=== PATIENT | female | born 1940 | race Caucasian/White ===

== ENCOUNTER 2018-08-24 15:01 | Inpatient (IN) | payer OTHER, MEDICAID ==
[~2018-08-24] VITALS: Ht 162.6 cm; Wt 58.2 kg
[~2018-08-24 15:01] MED LIST: ALEN70TA5 PO; DIPH25CA61 PO; IPRA4AER INH; LABE200T6 PO; LEVO25TA4 PO; LOSA1TAB22 PO; LOVA40TA2 PO; MORP30CA15 PO; OMEP-110 PO; OXYC-306 PO; POTA20TA91 PO
[2018-08-24] MEDS ORDERED: SODIUM CHLORIDE FLUSH 10ML SYR IVF ONE (15:30)
[2018-08-24] MEDS ORDERED: ASPIRIN 81 MG TABLET CHEW PO ONE (15:30)
[2018-08-24] MEDS ORDERED: DILTIAZEM 5 MG/ML, 5ML IV ONE ×2 (15:30→16:30)
[2018-08-24] MEDS ORDERED: DILTIAZEM 5 MG/ML, 5ML ONE (15:31)
[2018-08-24 15:37] LABS: BASOPHILS % (AUTO) 1 % (0-1); EOSINOPHILS # (AUTO) 0.25 x10^3/uL (0-0.4); EOSINOPHILS % (AUTO) 2 % (1-7); LYMPHOCYTES # (AUTO) 2.73 x10^3/uL (1-3.4); LYMPHOCYTES % (AUTO) 26 % (22-44); MD NO; MEAN CORPUSCULAR HEMOGLOBIN 30.9 pg (27.0-34.8); MEAN CORPUSCULAR HGB CONC 33.3 g/dL (32.4-35.8); MEAN CORPUSCULAR VOLUME 92.7 fL (80-100); MEAN PLATELET VOLUME 8.4 fL (7.4-10.4); MONOCYTES # (AUTO) 0.57 x10^3/uL (0.2-0.8); MONOCYTES % (AUTO) 5 % (2-9); NEUTROPHILS # (AUTO) 6.94 x10^3/uL (1.8-6.8); NEUTROPHILS % (AUTO) 66 % (42-75); PLATELET COUNT 265 x10^3/uL (130-400); RED BLOOD COUNT 5.23 x10^6/uL (3.82-5.3); RED CELL DISTRIBUTION WIDTH 13.6 % (9.6-15.2)
[2018-08-24] MEDS: DILTIAZEM 125 MG in DEXTROSE 5% 100 ML IV SCH ×2 (15:44→16:57)
[2018-08-24 15:45] LABS: ALBUMIN 4.2 g/dL (3.4-5.0); ANION GAP 9 mmol/L (5-15); CALCIUM 9.7 mg/dL (8.5-10.1); CHLORIDE 101 mmol/L (98-107)
[2018-08-24] MEDS ORDERED: MORPHINE SULFATE 4 MG/ML, 1ML ONE (16:24)
[2018-08-24] MEDS ORDERED: morphine SULFATE 10 MG/ML, 1ML IVPush ONE (16:30)
[2018-08-24 18:56] VITALS: BP 117/73
[2018-08-24 19:53] LABS: CHOLESTEROL, TOTAL 222 mg/dL (140-239); TRIGLYCERIDES 69 mg/dL (50-200); VLDL CHOLESTEROL 14 mg/dL (0-25)
[2018-08-24 19:57] LABS: HDL CHOL % 33 % (28-40); HDL CHOLESTEROL (DIRECT) 73 mg/dL (40-60); LDL CHOLESTEROL,CALCULATED 135 mg/dL (54-169); LDL/HDL RATIO 1.8 (0.5-3.0); TROPONIN I 0.414 ng/mL (0.000-0.045)
[2018-08-24 20:02] LABS: FREE T4 (FREE THYROXINE) 1.07 ng/dL (0.76-1.46)
[2018-08-24] MEDS ORDERED: AMLO10TA6 PO (20:06)
[2018-08-24] MEDS ORDERED: POLY17PO5 PO (20:06)
[2018-08-24] MEDS ORDERED: DOCU100C33 PO (20:06)
[2018-08-24] MEDS ORDERED: LEVO100T5 PO (20:06)
[2018-08-24] MEDS ORDERED: ALBUTEROL/IPRATROPIUM 2.5MG/0.5MG, 3 ML ONE (20:55)
[2018-08-24] MEDS ORDERED: OXYcodone/APAP 7.5/325MG TABLET PO SCH (21:00)
[2018-08-24] MEDS ORDERED: ALBUTEROL/IPRATROPIUM 2.5MG/0.5MG, 3 ML NPPB PRN (21:30)
[2018-08-24] MEDS: NICOTINE 14MG/24 HR PATCH.TD24 TD SCH (21:39)
[2018-08-24] MEDS: METOPROLOL TARTRATE 25 MG TABLET PO SCH (21:39)
[2018-08-24] MEDS: SODIUM CHLORIDE FLUSH 10ML SYR IVF SCH (21:39)
[2018-08-24] MEDS: DIPHENHYDRAMINE 25 MG CAPSULE PO PRN (21:49)
[2018-08-24] MEDS: OXYcodone/APAP 7.5/325MG TABLET PO SCH (23:10)
[2018-08-25 00:37] VITALS: BP 115/66
[2018-08-25 01:47] LABS: TROPONIN I 0.725 ng/mL (0.000-0.045)
[2018-08-25 01:49] LABS: HEMOGLOBIN A1C 5.7 % (4.2-6.3)
[2018-08-25 05:37] LABS: BASOPHILS # (AUTO) 0.05 x10^3/uL (0-0.1); BASOPHILS % (AUTO) 1 % (0-1); EOSINOPHILS # (AUTO) 0.24 x10^3/uL (0-0.4); EOSINOPHILS % (AUTO) 3 % (1-7); LYMPHOCYTES % (AUTO) 35 % (22-44); MD NO; MEAN CORPUSCULAR HEMOGLOBIN 31.3 pg (27.0-34.8); MEAN CORPUSCULAR HGB CONC 33.3 g/dL (32.4-35.8); MEAN CORPUSCULAR VOLUME 93.9 fL (80-100); MONOCYTES # (AUTO) 0.65 x10^3/uL (0.2-0.8); MONOCYTES % (AUTO) 8 % (2-9); NEUTROPHILS # (AUTO) 4.45 x10^3/uL (1.8-6.8); NEUTROPHILS % (AUTO) 54 % (42-75); PLATELET COUNT 241 x10^3/uL (130-400); RED BLOOD COUNT 4.69 x10^6/uL (3.82-5.3)
[2018-08-25 05:47] LABS: ANION GAP 7 mmol/L (5-15); CALCIUM 9.1 mg/dL (8.5-10.1); CHLORIDE 103 mmol/L (98-107); CREATININE 0.77 mg/dL (0.55-1.02)
[2018-08-25 06:40] VITALS: BP 144/72
[2018-08-25 08:04] LABS: TROPONIN I 0.599 ng/mL (0.000-0.045)
[2018-08-25] MEDS: METOPROLOL TARTRATE 25 MG TABLET PO SCH ×2 (09:00→20:45)
[2018-08-25] MEDS ORDERED: LOSARTAN 50MG TABLET PO SCH (09:00)
[2018-08-25] MEDS: SODIUM CHLORIDE FLUSH 10ML SYR IVF SCH ×2 (09:00→20:46)
[2018-08-25] MEDS: ALBUTEROL/IPRATROPIUM 2.5MG/0.5MG, 3 ML NPPB SCH ×2 (09:12→19:40)
[2018-08-25] MEDS: LEVOTHYROXINE 25 MCG TABLET PO SCH (10:05)
[2018-08-25] MEDS: HYDROCHLOROTHIAZIDE 25 MG TABLET PO SCH (10:05)
[2018-08-25] MEDS: POTASSIUM CHLORIDE 10 MEQ TABLET.ER PO SCH (10:06)
[2018-08-25] MEDS: OXYcodone/APAP 7.5/325MG TABLET PO SCH ×2 (10:06→20:41)
[2018-08-25 12:49] VITALS: BP 138/61
[2018-08-25 15:33] VITALS: BP 119/66
[2018-08-25] MEDS: NICOTINE 14MG/24 HR PATCH.TD24 TD SCH (19:30)
[2018-08-25 20:43] VITALS: BP 145/75
[2018-08-25 21:22] LABS: TROPONIN I 0.344 ng/mL (0.000-0.045)
[2018-08-26 02:17] VITALS: BP 156/82
[2018-08-26] MEDS: DIPHENHYDRAMINE 25 MG CAPSULE PO PRN (02:17)
[2018-08-26 05:26] LABS: BASOPHILS # (AUTO) 0.03 x10^3/uL (0-0.1); BASOPHILS % (AUTO) 0 % (0-1); EOSINOPHILS # (AUTO) 0.26 x10^3/uL (0-0.4); EOSINOPHILS % (AUTO) 3 % (1-7); LYMPHOCYTES % (AUTO) 24 % (22-44); MD NO; MEAN CORPUSCULAR HEMOGLOBIN 31.9 pg (27.0-34.8); MEAN CORPUSCULAR HGB CONC 34.1 g/dL (32.4-35.8); MEAN CORPUSCULAR VOLUME 93.4 fL (80-100); MEAN PLATELET VOLUME 8.5 fL (7.4-10.4); MONOCYTES # (AUTO) 0.64 x10^3/uL (0.2-0.8); MONOCYTES % (AUTO) 7 % (2-9); NEUTROPHILS % (AUTO) 66 % (42-75); PLATELET COUNT 217 x10^3/uL (130-400); RED CELL DISTRIBUTION WIDTH 13.9 % (9.6-15.2)
[2018-08-26 05:29] LABS: ANION GAP 5 mmol/L (5-15); CALCIUM 8.9 mg/dL (8.5-10.1); CHLORIDE 101 mmol/L (98-107)
[2018-08-26 05:34] LABS: TROPONIN I 0.264 ng/mL (0.000-0.045)
[2018-08-26] MEDS: LEVOTHYROXINE 25 MCG TABLET PO SCH (05:52)
[2018-08-26 06:35] VITALS: BP 145/71
[2018-08-26] MEDS: OXYcodone/APAP 7.5/325MG TABLET PO SCH ×2 (09:35→20:24)
[2018-08-26] MEDS: ALBUTEROL/IPRATROPIUM 2.5MG/0.5MG, 3 ML NPPB SCH ×2 (10:04→19:09)
[2018-08-26] MEDS ORDERED: REGADENOSON 0.4 MG/5 ML SYRINGE ONE (10:05)
[2018-08-26] MEDS: SODIUM CHLORIDE FLUSH 10ML SYR IVF SCH ×2 (13:11→20:24)
[2018-08-26] MEDS: HYDROCHLOROTHIAZIDE 25 MG TABLET PO SCH (13:12)
[2018-08-26] MEDS: LOSARTAN 50MG TABLET PO SCH (13:12)
[2018-08-26] MEDS: METOPROLOL TARTRATE 25 MG TABLET PO SCH ×2 (13:12→20:24)
[2018-08-26] MEDS: POTASSIUM CHLORIDE 10 MEQ TABLET.ER PO SCH (13:12)
[2018-08-26 13:16] VITALS: BP 122/56
[2018-08-26 18:37] VITALS: BP 127/73
[2018-08-26] MEDS: NICOTINE 14MG/24 HR PATCH.TD24 TD SCH (20:24)
[2018-08-27 01:58] VITALS: BP 145/73
[2018-08-27] MEDS: DIPHENHYDRAMINE 25 MG CAPSULE PO PRN (02:06)
[2018-08-27 05:20] LABS: ANION GAP 7 mmol/L (5-15); CALCIUM 9.2 mg/dL (8.5-10.1); CHLORIDE 98 mmol/L (98-107); CREATININE 0.73 mg/dL (0.55-1.02)
[2018-08-27 05:23] LABS: TROPONIN I 0.171 ng/mL (0.000-0.045)
[2018-08-27 06:03] VITALS: BP 137/67
[2018-08-27] MEDS: LEVOTHYROXINE 25 MCG TABLET PO SCH (06:06)
[2018-08-27 07:07] VITALS: BP 138/68
[2018-08-27] MEDS: HYDROCHLOROTHIAZIDE 25 MG TABLET PO SCH (07:55)
[2018-08-27] MEDS: POTASSIUM CHLORIDE 10 MEQ TABLET.ER PO SCH (07:55)
[2018-08-27] MEDS: METOPROLOL TARTRATE 25 MG TABLET PO SCH (07:55)
[2018-08-27] MEDS: LOSARTAN 50MG TABLET PO SCH (07:56)
[2018-08-27] MEDS: SODIUM CHLORIDE FLUSH 10ML SYR IVF SCH (07:56)
[2018-08-27] MEDS: ALBUTEROL/IPRATROPIUM 2.5MG/0.5MG, 3 ML NPPB SCH (08:13)
[2018-08-27] MEDS ORDERED: AMLODIPINE 5 MG TABLET PO SCH (09:00)
[2018-08-27] MEDS: OXYcodone/APAP 7.5/325MG TABLET PO SCH (09:28)
[2018-08-27] MEDS ORDERED: APIXABAN 5 MG TABLET PO SCH (10:00)
[2018-08-27] MEDS ORDERED: METO25TA35 PO (13:19)
[2018-08-27] MEDS ORDERED: AMLO5TAB7 PO (13:19)
[2018-08-27] MEDS ORDERED: APIX5TAB PO (13:19)
[2018-08-27] MEDS ORDERED: NICO-486 TD (13:19)
[2018-08-27 13:23] VITALS: BP 133/78
== END 2018-08-27 16:40 | disposition home health service (06) | DRG 280 ==
LOC: ED 15:50 → EDIP 17:31 → 5SO 18:45 → DCLOUNGE 08-27 14:17
PROVIDERS: ADMIT Family Medicine; ATTEND Family Medicine
DX: I21.4 Non-ST elevation (NSTEMI) myocardial infarction (principal); J96.21 Acute and chronic respiratory failure with hypoxia; I71.00 Dissection of unspecified site of aorta; I50.30 Unspecified diastolic (congestive) heart failure; D68.59 Other primary thrombophilia; I48.0 Paroxysmal atrial fibrillation; E03.9 Hypothyroidism, unspecified; E11.9 Type 2 diabetes mellitus without complications; E78.5 Hyperlipidemia, unspecified; F17.210 Nicotine dependence, cigarettes, uncomplicated; F32.9 Major depressive disorder, single episode, unspecified; G89.29 Other chronic pain; I11.0 Hypertensive heart disease with heart failure; I34.0 Nonrheumatic mitral (valve) insufficiency; I35.8 Other nonrheumatic aortic valve disorders; J44.9 Chronic obstructive pulmonary disease, unspecified; M81.0 Age-related osteoporosis without current pathological fracture; Z66 Do not resuscitate; Z79.899 Other long term (current) drug therapy; Z99.81 Dependence on supplemental oxygen; I71.4 Abdominal aortic aneurysm, without rupture; Z88.8 Allergy status to other drugs, medicaments and biological substances
CPT/HCPCS: 36415; 71045; 74174; 78452; 80048; 80061; 82040; 83036; 84439; 84443; 84484; 85025; 93005; 93017; 93306; 93978; 94640; 96374; G0378; J2785; J7620; A9502; C9898; J2270; Q0163

== ENCOUNTER 2019-02-24 14:15 | Emergency (ER) | payer MEDICARE, MEDICAID ==
[~2019-02-24] VITALS: Ht 162.6 cm; Wt 58.0 kg
[~2019-02-24 14:15] MED LIST changes: -ALEN70TA5 PO; +ALEN70TA6 PO; +AMLO-150 PO; +AMLO10TA8 PO; +APIX5TAB PO; +DOCU100C33 PO; +LEVO100T5 PO; +METO25TA35 PO; +NICO-486 TD; +POLY17PO5 PO
[2019-02-24] MEDS ORDERED: METHOCARBAMOL 750 MG TABLET PO ONE (15:00)
[2019-02-24] MEDS ORDERED: METHOCARBAMOL 750 MG TABLET ONE (15:18)
[2019-02-24] MEDS ORDERED: LEVO150T5 PO (15:25)
--- NOTE | 2019-02-24 15:25 | NUR ---
CT COMPLETED AND MEDICATED PER ORDERS
--- NOTE | 2019-02-24 16:19 | NUR ---
ASSUMED CARE OF PT WHILE PRIMARY RN AT LUNCH. MD AT BEDSIDE. PT WILL BE DISCHARGED. ASSISTED PT TO BR AND PT STABLE ON FEET.
--- NOTE | 2019-02-24 16:34 | NUR ---
RESTING WITH EYES CLOSED
[2019-02-24 16:36] VITALS: BP 193/82
== END 2019-02-24 18:03 | disposition home or self-care (01) ==
LOC: ED 17:44
DX: M47.892 Other spondylosis, cervical region (principal); K08.89 Other specified disorders of teeth and supporting structures; I10 Essential (primary) hypertension; E03.9 Hypothyroidism, unspecified; J44.9 Chronic obstructive pulmonary disease, unspecified; M19.90 Unspecified osteoarthritis, unspecified site
CPT/HCPCS: 72125; 99284

== ENCOUNTER 2019-02-27 09:13 | Emergency (ER) | payer MEDICARE, MEDICAID ==
[~2019-02-27] VITALS: Ht 162.6 cm; Wt 55.1 kg
[~2019-02-27 09:13] MED LIST changes: +LEVO150T5 PO
[2019-02-27 09:15] VITALS: BP 205/61
--- NOTE | 2019-02-27 09:37 | NUR ---
CHRONIC PAIN BACK AND NECK ON PAIN MGT IS OUT OF MEDS TOOK MORE THAN WRITTEN FOR
[2019-02-27] MEDS ORDERED: OXYcodone/APAP 5/325MG TABLET ONE (10:17)
[2019-02-27] MEDS ORDERED: HYDROcodone/APAP 5/325 TABLET PO ONE (10:30)
[2019-02-27] MEDS ORDERED: OXYcodone/APAP 5/325MG TABLET PO ONE (10:30)
[2019-03-01] MEDS ORDERED: TIZA4TAB PO
[2019-03-01] MEDS ORDERED: METH750T2 PO
[2019-03-03] MEDS ORDERED: LOSA100T14 PO (16:01)
== END 2019-02-27 10:38 | disposition home or self-care (01) ==
LOC: ED 09:45
DX: F11.23 Opioid dependence with withdrawal (principal); E03.9 Hypothyroidism, unspecified; J44.9 Chronic obstructive pulmonary disease, unspecified; M19.90 Unspecified osteoarthritis, unspecified site; I11.9 Hypertensive heart disease without heart failure
CPT/HCPCS: 99283

== ENCOUNTER 2020-02-23 12:05 | Inpatient (IN) | payer MEDICARE, MEDICAID ==
[2020-02-23] VITALS (10 sets, daily range): BP systolic 117–159; BP diastolic 61–78
[~2020-02-23] VITALS: Ht 162.6 cm; Wt 54.9 kg
[~2020-02-23 12:05] MED LIST changes: +AMOX1TAB64 PO; +ASPI-496 PO; +ASPI300S PR; +ATOR40TA78 PO; +FURO-93 PO; +LOSA100T14 PO; +METH750T2 PO; +METO25TA91 PO; +POTA10TA5 PO; +POTA8CAP20 PO; +RIVA15TA PO; +TIZA4TAB2 PO
[2020-02-23] MEDS ORDERED: DILTIAZEM 125 MG in SODIUM CHLORIDE 0.9% 100 ML IV SCH (12:19)
--- NOTE | 2020-02-23 12:27 | NUR ---
PT BIB [facility] FOR CP. "I AM HAVING CP AND PAIN ALL OVER. THEY TOOK ME OFF MY PAIN MEDICINE A FEW DAYS AGO." EKG COMPLETE. LABS DRAWN. PT IS CONNECTED TO LEATHER TACKER AND PULSE OX
[2020-02-23] MEDS ORDERED: PLEASE ENTER HEIGHT AND WEIGHT MC SCH (12:30)
[2020-02-23] MEDS ORDERED: SODIUM CHLORIDE FLUSH 10ML SYR IVF ONE (12:30)
[2020-02-23] MEDS ORDERED: DILTIAZEM 5 MG/ML, 5ML IVPush ONE (12:30)
[2020-02-23 12:36] LABS: BASOPHILS # (AUTO) 0.09 x10^3/uL (0-0.1); BASOPHILS % (AUTO) 2 % (0-1); EOSINOPHILS # (AUTO) 0.03 x10^3/uL (0-0.4); EOSINOPHILS % (AUTO) 1 % (1-7); LYMPHOCYTES # (AUTO) 0.82 x10^3/uL (1-3.4); LYMPHOCYTES % (AUTO) 16 % (22-44); MD NO; MEAN CORPUSCULAR HEMOGLOBIN 26.5 pg (27.0-34.8); MEAN CORPUSCULAR VOLUME 82.8 fL (80-100); MEAN PLATELET VOLUME 8.4 fL (7.4-10.4); MONOCYTES # (AUTO) 0.54 x10^3/uL (0.2-0.8); MONOCYTES % (AUTO) 10 % (2-9); NEUTROPHILS # (AUTO) 3.85 x10^3/uL (1.8-6.8); NEUTROPHILS % (AUTO) 72 % (42-75); PLATELET COUNT 378 x10^3/uL (130-400); RED BLOOD COUNT 2.96 x10^6/uL (3.82-5.3); RED CELL DISTRIBUTION WIDTH 17.6 % (9.6-15.2)
[2020-02-23] MEDS ORDERED: DILTIAZEM 5 MG/ML, 5ML ONE (12:37)
[2020-02-23 12:46] LABS: ALANINE AMINOTRANSFERASE 23 U/L (12-78); ANION GAP 8 mmol/L (5-15); CALCIUM 8.7 mg/dL (8.5-10.1); CHLORIDE 105 mmol/L (98-107); CREATININE 0.67 mg/dL (0.55-1.02)
[2020-02-23] MEDS ORDERED: PANTOPRAZOLE 80 MG in SODIUM CHLORIDE 0.9% 50 ML IVPB ONE (12:53)
[2020-02-23] MEDS ORDERED: PANTOPRAZOLE 80 MG in SODIUM CHLORIDE 0.9% 100 ML IV SCH (12:53)
[2020-02-23 13:00] LABS: ALKALINE PHOSPHATASE 70 U/L (45-117); BILIRUBIN,TOTAL 0.4 mg/dL (0.2-1.0)
[2020-02-23] MEDS ORDERED: POTASSIUM CHLORIDE 20 MEQ TAB.ER.PRT PO ONE (13:00)
[2020-02-23] MEDS ORDERED: POTASSIUM CHLORIDE 40 MEQ in SODIUM CHLORIDE 0.9% 500 ML IV ONE ×2 (13:00→17:00)
[2020-02-23 13:01] LABS: TOTAL PROTEIN 7.1 g/dL (6.4-8.2); TROPONIN I 0.073 ng/mL (0.000-0.045)
--- NOTE | 2020-02-23 13:10 | NUR ---
CALL SHONA [phone] WHEN READY TO BE DC'D FOR RIDE
[2020-02-23 13:20] LABS: FREE T4 (FREE THYROXINE) 2.43 ng/dL (0.76-1.46)
[2020-02-23] MEDS ORDERED: POTASSIUM CHLORIDE 20 MEQ TAB.ER.PRT ONE (13:24)
[2020-02-23] MEDS ORDERED: MAGNESIUM SULFATE PMX 2GM/50ML 50 ML IV ONE (13:30)
--- NOTE | 2020-02-23 13:39 | NUR ---
ADMITTING HOSPITALIST IN WITH PT AT THIS TIME
[2020-02-23 13:41] LABS: INTERNATIONAL NORMALIZED RATIO 1.04 (0.93-1.1)
[2020-02-23] MEDS ORDERED: LABETALOL 5MG/ML, 20ML IVPush PRN (14:00)
[2020-02-23] MEDS ORDERED: ACETAMINOPHEN 325 MG TABLET PO PRN (14:00)
[2020-02-23] MEDS ORDERED: hydrALAzine 20 MG/ML, 1ML IVPush PRN (14:00)
[2020-02-23] MEDS ORDERED: ENALAPRILAT 1.25 MG/ML, 2ML IVPush PRN (14:00)
[2020-02-23] MEDS ORDERED: ONDANSETRON 2MG/ML, 2ML IVPush PRN (14:00)
[2020-02-23] MEDS ORDERED: OXYcodone IR 5MG TABLET PO PRN (14:00)
[2020-02-23] MEDS ORDERED: METHOCARBAMOL 750 MG TABLET PO PRN (14:30)
[2020-02-23] MEDS ORDERED: METO25TA91 PO (14:53)
--- NOTE | 2020-02-23 14:58 | NUR ---
SPOKE WITH [facility] D/C CARDIZEM REPEAT EKG AND TRANSFER TO FLOOR
[2020-02-23] MEDS ORDERED: ALBUTEROL/IPRATROPIUM 2.5MG/0.5MG, 3 ML NPPB PRN (15:30)
[2020-02-23 18:19] LABS: MICROSCOPIC AUTO
[2020-02-23 18:20] LABS: CULTURE INDICATED? YES
[2020-02-23] MEDS: MORPHINE SULFATE 4 MG/ML, 1ML IVPush PRN (18:26)
[2020-02-23 20:12] LABS: ANION GAP 5 mmol/L (5-15); CALCIUM 8.4 mg/dL (8.5-10.1); CHLORIDE 110 mmol/L (98-107); CREATININE 0.56 mg/dL (0.55-1.02)
[2020-02-23 20:15] LABS: TROPONIN I 0.847 ng/mL (0.000-0.045)
[2020-02-23] MEDS ORDERED: CEFTRIAXONE PMX 2GM/50ML 50 ML IV ONE (20:30)
[2020-02-23] MEDS ORDERED: ATORVASTATIN 40 MG TABLET PO SCH (21:00)
[2020-02-23] MEDS: OXYcodone/APAP 7.5/325MG TABLET PO SCH (21:06)
[2020-02-24 01:16] VITALS: BP 147/62
[2020-02-24 01:39] LABS: MD NO; MEAN PLATELET VOLUME 8.3 fL (7.4-10.4)
[2020-02-24 01:47] LABS: BASOPHILS # (AUTO) 0.04 x10^3/uL (0-0.1); BASOPHILS % (AUTO) 1 % (0-1); EOSINOPHILS # (AUTO) 0.17 x10^3/uL (0-0.4); EOSINOPHILS % (AUTO) 3 % (1-7); LYMPHOCYTES # (AUTO) 2.12 x10^3/uL (1-3.4); LYMPHOCYTES % (AUTO) 32 % (22-44); MEAN CORPUSCULAR HEMOGLOBIN 27.5 pg (27.0-34.8); MEAN CORPUSCULAR HGB CONC 32.4 g/dL (32.4-35.8); MONOCYTES # (AUTO) 0.69 x10^3/uL (0.2-0.8); MONOCYTES % (AUTO) 11 % (2-9); NEUTROPHILS # (AUTO) 3.59 x10^3/uL (1.8-6.8); NEUTROPHILS % (AUTO) 54 % (42-75); PLATELET COUNT 279 x10^3/uL (130-400); RED BLOOD COUNT 3.48 x10^6/uL (3.82-5.3); RED CELL DISTRIBUTION WIDTH 16.7 % (9.6-15.2)
[2020-02-24 01:54] LABS: ANION GAP 6 mmol/L (5-15); CALCIUM 8.5 mg/dL (8.5-10.1); CHLORIDE 110 mmol/L (98-107); CREATININE 0.52 mg/dL (0.55-1.02)
[2020-02-24 02:02] LABS: TROPONIN I 0.967 ng/mL (0.000-0.045)
[2020-02-24 06:23] VITALS: BP 167/68
[2020-02-24] MEDS: METOPROLOL SUCCINATE 25 MG TAB.ER.24H PO SCH (06:34)
[2020-02-24 07:18] LABS: TROPONIN I 0.848 ng/mL (0.000-0.045)
[2020-02-24] MEDS ORDERED: POTASSIUM ACID PHOSPHATE 500 MG TABLET.SOL PO SCH (07:30)
[2020-02-24] MEDS: AMLODIPINE 5 MG TABLET PO SCH (09:05)
[2020-02-24] MEDS: LOSARTAN 100 MG TAB PO SCH (09:06)
[2020-02-24] MEDS: OXYcodone/APAP 7.5/325MG TABLET PO SCH ×2 (09:06→20:04)
--- NOTE | 2020-02-24 11:05 | NUR ---
Pt will benefit from SNF rehab but will probably not want to go. Maybe a fdc. Addendum: 02/24/20 at 1105 by Fam Kwok PT Amended: Links added.
[2020-02-24] MEDS: PANTOPRAZOLE 40 MG IV IVPush SCH ×2 (12:08→22:48)
[2020-02-24 13:21] VITALS: BP 110/61
[2020-02-24] MEDS: CEFTRIAXONE PMX 1GM/50ML 50 ML IV SCH (20:40)
[2020-02-24] MEDS ORDERED: ATORVASTATIN 80 MG TABLET PO SCH (21:00)
[2020-02-24 21:19] VITALS: BP 144/78
[2020-02-24] MEDS: MORPHINE SULFATE 4 MG/ML, 1ML IVPush PRN (21:33)
[2020-02-25 02:07] VITALS: BP 155/77
[2020-02-25 05:15] LABS: BASOPHILS # (AUTO) 0.06 x10^3/uL (0-0.1); BASOPHILS % (AUTO) 1 % (0-1); EOSINOPHILS # (AUTO) 0.31 x10^3/uL (0-0.4); EOSINOPHILS % (AUTO) 4 % (1-7); LYMPHOCYTES # (AUTO) 1.47 x10^3/uL (1-3.4); LYMPHOCYTES % (AUTO) 17 % (22-44); MD NO; MEAN CORPUSCULAR HEMOGLOBIN 27.3 pg (27.0-34.8); MEAN CORPUSCULAR VOLUME 85.1 fL (80-100); MEAN PLATELET VOLUME 8.5 fL (7.4-10.4); MONOCYTES # (AUTO) 0.74 x10^3/uL (0.2-0.8); MONOCYTES % (AUTO) 9 % (2-9); NEUTROPHILS # (AUTO) 5.91 x10^3/uL (1.8-6.8); NEUTROPHILS % (AUTO) 70 % (42-75); PLATELET COUNT 296 x10^3/uL (130-400); RED BLOOD COUNT 3.75 x10^6/uL (3.82-5.3); RED CELL DISTRIBUTION WIDTH 17.6 % (9.6-15.2)
[2020-02-25 05:18] LABS: ANION GAP 6 mmol/L (5-15); CALCIUM 8.7 mg/dL (8.5-10.1); CHLORIDE 108 mmol/L (98-107); CREATININE 0.62 mg/dL (0.55-1.02)
[2020-02-25 06:28] VITALS: BP 163/63
[2020-02-25] MEDS: MORPHINE SULFATE 4 MG/ML, 1ML IVPush PRN (06:46)
[2020-02-25] MEDS: OXYcodone/APAP 7.5/325MG TABLET PO SCH (08:46)
[2020-02-25] MEDS: LOSARTAN 100 MG TAB PO SCH (08:46)
[2020-02-25] MEDS: METOPROLOL SUCCINATE 25 MG TAB.ER.24H PO SCH (08:48)
[2020-02-25] MEDS: AMLODIPINE 5 MG TABLET PO SCH ×2 (08:48→12:51)
[2020-02-25] MEDS ORDERED: SODIUM CHLORIDE 0.9% 1,000 ML IV SCH (09:00)
[2020-02-25] MEDS ORDERED: PROMETHAZINE 25 MG/ML, 1ML IV PRN (09:30)
[2020-02-25] MEDS ORDERED: MORPHINE SULFATE 4 MG/ML, 1ML IVPush PRN (09:30)
[2020-02-25] MEDS ORDERED: CHLORHEXIDINE 15 ML UDC MM STA (09:55)
[2020-02-25] MEDS ORDERED: CHLORHEXIDINE 15 ML UDC ONE (09:57)
[2020-02-25] MEDS ORDERED: FENTANYL PF 100 MCG/2ML ONE (10:03)
[2020-02-25] MEDS ORDERED: PROPOFOL 10 MG/ML, 20ML ONE (11:00)
[2020-02-25] MEDS ORDERED: SUCCINYLCHOLINE 20 MG/ML, 10ML ONE (11:00)
[2020-02-25] MEDS ORDERED: hydrALAzine 20 MG/ML, 1ML ONE (11:41)
[2020-02-25 12:12] VITALS: BP 143/61
[2020-02-25] MEDS: PANTOPRAZOLE 40 MG IV IVPush SCH (12:20)
[2020-02-25] MEDS: CEFTRIAXONE PMX 1GM/50ML 50 ML IV SCH (13:35)
[2020-02-25] MEDS ORDERED: ATOR-2 PO ×2 (14:10)
[2020-02-25] MEDS ORDERED: LEVO100T5 PO (14:10)
[2020-02-25] MEDS ORDERED: PANT40TA5 PO (14:10)
== END 2020-02-25 16:40 | disposition home health service (06) | DRG 377 ==
LOC: ED 13:10 → EDIP 13:31 → 5SO 15:17
PROVIDERS: ADMIT Family Medicine; ATTEND Family Medicine
PROC: 30233N1 Transfusion of Nonautologous Red Blood Cells into Peripheral Vein, Percutaneous Approach (ICD-10-PCS; 2020-02-23)
PROC: 0DB68ZX Excision of Stomach, Via Natural or Artificial Opening Endoscopic, Diagnostic (ICD-10-PCS; 2020-02-25)
PROC: 0D598ZZ Destruction of Duodenum, Via Natural or Artificial Opening Endoscopic (ICD-10-PCS; principal; 2020-02-25 10:00)
DX: K31.811 Angiodysplasia of stomach and duodenum with bleeding (principal); I21.A1 Myocardial infarction type 2; J96.91 Respiratory failure, unspecified with hypoxia; I71.02 Dissection of abdominal aorta; I48.20 Chronic atrial fibrillation, unspecified; F11.23 Opioid dependence with withdrawal; D62 Acute posthemorrhagic anemia; D68.69 Other thrombophilia; I48.92 Unspecified atrial flutter; N39.0 Urinary tract infection, site not specified; K26.4 Chronic or unspecified duodenal ulcer with hemorrhage; E03.9 Hypothyroidism, unspecified; E83.42 Hypomagnesemia; E87.6 Hypokalemia; G89.29 Other chronic pain; I11.0 Hypertensive heart disease with heart failure; I25.2 Old myocardial infarction; I34.0 Nonrheumatic mitral (valve) insufficiency; I48.0 Paroxysmal atrial fibrillation; I50.9 Heart failure, unspecified; I65.22 Occlusion and stenosis of left carotid artery; I73.9 Peripheral vascular disease, unspecified; J44.9 Chronic obstructive pulmonary disease, unspecified; M79.7 Fibromyalgia; Z79.01 Long term (current) use of anticoagulants; Z82.49 Family history of ischemic heart disease and other diseases of the circulatory system; Z86.73 Personal history of transient ischemic attack (TIA), and cerebral infarction without residual deficits; Z86.79 Personal history of other diseases of the circulatory system; Z87.11 Personal history of peptic ulcer disease; Z87.891 Personal history of nicotine dependence; K44.9 Diaphragmatic hernia without obstruction or gangrene
CPT/HCPCS: 36415; 71045; 80048; 80053; 81001; 83735; 84100; 84439; 84443; 84481; 84484; 85018; 85025; 85610; 86850; 86900; 86923; 87077; 87086; 87186; 88305; 88342; 93005; 96365; 96366; 96375; 99291; G0378; J0696; J2704; J3010; J3480; C9113; J0330; J0360; J2270; J3475; J7030; J7040; P9016

== ENCOUNTER 2020-06-27 15:40 | Inpatient (IN) | payer MEDICARE, MEDICAID ==
[~2020-06-27] VITALS: Ht 160 cm; Wt 52.3 kg
[~2020-06-27 15:40] MED LIST changes: +ATOR-2 PO; +PANT40TA5 PO
--- NOTE | 2020-06-27 15:53 | NUR ---
PT CAME IN CO OF WEAKNESS. STATES SHE IS UNABLE TO TAKE CARE OF HERSELF AND HER HOME HEALTH NURSE DOESNT COME OVER ENOUGH. SHE WANTS TO GET INTO SOME KIND OF LONG TERM. PT ALSO CO OF NOT BEING TO BREATH. PT 100% ON BASELINE 2 LITERS FOR COPD. CONNECTED TO MONITORING EQUIPMENT.
[2020-06-27 16:08] LABS: BASOPHILS # (AUTO) 0.01 x10^3/uL (0-0.1); BASOPHILS % (AUTO) 0 % (0-1); EOSINOPHILS # (AUTO) 0.06 x10^3/uL (0-0.4); EOSINOPHILS % (AUTO) 1 % (1-7); LYMPHOCYTES # (AUTO) 1.02 x10^3/uL (1-3.4); LYMPHOCYTES % (AUTO) 16 % (22-44); MD NO; MEAN CORPUSCULAR HEMOGLOBIN 24.3 pg (27.0-34.8); MEAN CORPUSCULAR HGB CONC 31.3 g/dL (32.4-35.8); MEAN CORPUSCULAR VOLUME 77.7 fL (80-100); MEAN PLATELET VOLUME 7.1 fL (7.4-10.4); MONOCYTES # (AUTO) 0.69 x10^3/uL (0.2-0.8); MONOCYTES % (AUTO) 11 % (2-9); NEUTROPHILS # (AUTO) 4.68 x10^3/uL (1.8-6.8); NEUTROPHILS % (AUTO) 72 % (42-75); PLATELET COUNT 387 x10^3/uL (130-400); RED BLOOD COUNT 4.24 x10^6/uL (3.82-5.3); RED CELL DISTRIBUTION WIDTH 17.8 % (9.6-15.2)
[2020-06-27 16:17] LABS: ALANINE AMINOTRANSFERASE 32 U/L (12-78); ALBUMIN 3.8 g/dL (3.4-5.0); ANION GAP 8 mmol/L (5-15); CALCIUM 9.1 mg/dL (8.5-10.1); CHLORIDE 90 mmol/L (98-107)
[2020-06-27 16:20] LABS: ALKALINE PHOSPHATASE 68 U/L (45-117); BILIRUBIN,TOTAL 0.5 mg/dL (0.2-1.0); CREATININE 0.79 mg/dL (0.55-1.02); TOTAL PROTEIN 7.3 g/dL (6.4-8.2)
--- NOTE | 2020-06-27 16:20 | NUR ---
CALLED [employer] FOR HOME HEALTH EVAL
[2020-06-27 16:27] LABS: MICROSCOPIC INDICATED
--- NOTE | 2020-06-27 16:58 | NUR ---
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 DISCUSSED VISITING HOURS 3P-8P AND NO COVID R/O ARE ALLOWED VISITORS. UNDERSTANDING VERBALIZED. VERONA WILL CALL TOMORROW TO DISCUSS WITH PTS NURSE.
--- NOTE | 2020-06-27 17:07 | NUR ---
PT UP FOR RECHECK AT THIS TIME. VSS. NAD
[2020-06-27] MEDS ORDERED: CEFTRIAXONE PMX 1GM/50ML 50 ML IVPB ONE (17:30)
[2020-06-27] MEDS ORDERED: CEFTRIAXONE PMX 1GM/50ML 50 ML ONE (17:35)
[2020-06-27] MEDS ORDERED: ASPI-515 PO (18:25)
[2020-06-27] MEDS ORDERED: SODIUM CHLORIDE FLUSH 10ML SYR IVF PRN (18:30)
[2020-06-27] MEDS ORDERED: LABETALOL 5MG/ML, 20ML IVPush PRN (19:30)
[2020-06-27] MEDS ORDERED: CEFTRIAXONE PMX 2GM/50ML 50 ML IV SCH (19:30)
[2020-06-27] MEDS ORDERED: ALBUTEROL-IPRATROPIUM MDI INH INH PRN (19:30)
[2020-06-27] MEDS ORDERED: DOCUSATE 100 MG CAPSULE PO PRN (19:30)
[2020-06-27] MEDS ORDERED: POLYETHYLENE GLYCOL 17 GM PACKET PO PRN (19:30)
[2020-06-27] MEDS ORDERED: ONDANSETRON ODT 4 MG PO PRN (19:30)
[2020-06-27] MEDS ORDERED: BISACODYL 10 MG SUPP PR PRN (19:30)
[2020-06-27] MEDS ORDERED: ONDANSETRON 2MG/ML, 2ML IVPush PRN (19:30)
[2020-06-27] MEDS: NICOTINE 7 MG/24 HR PATCH.TD24 TD SCH (20:49)
[2020-06-27] MEDS: ATORVASTATIN 80 MG TABLET PO SCH (20:49)
[2020-06-27] MEDS: SODIUM CHLORIDE 0.9% 1,000 ML IV SCH (20:50)
[2020-06-27 20:51] VITALS: BP 107/58
[2020-06-27] MEDS: OXYcodone/APAP 7.5/325MG TABLET PO SCH (23:47)
[2020-06-28 00:10] VITALS: BP 152/74
[2020-06-28] MEDS: TIZANIDINE 4MG TABLET PO PRN ×3 (05:05→23:07)
[2020-06-28] MEDS: METOPROLOL SUCCINATE 25 MG TAB.ER.24H PO SCH (05:06)
[2020-06-28] MEDS: ACETAMINOPHEN 325 MG TABLET PO PRN ×3 (05:06→23:07)
[2020-06-28 05:57] LABS: ANION GAP 6 mmol/L (5-15); CALCIUM 8.6 mg/dL (8.5-10.1); CHLORIDE 96 mmol/L (98-107)
[2020-06-28 06:08] LABS: BASOPHILS # (AUTO) 0.04 x10^3/uL (0-0.1); BASOPHILS % (AUTO) 1 % (0-1); EOSINOPHILS # (AUTO) 0.19 x10^3/uL (0-0.4); EOSINOPHILS % (AUTO) 4 % (1-7); LYMPHOCYTES # (AUTO) 1.23 x10^3/uL (1-3.4); LYMPHOCYTES % (AUTO) 23 % (22-44); MD NO; MEAN CORPUSCULAR HEMOGLOBIN 24.3 pg (27.0-34.8); MEAN CORPUSCULAR HGB CONC 31.8 g/dL (32.4-35.8); MEAN CORPUSCULAR VOLUME 76.6 fL (80-100); MEAN PLATELET VOLUME 7.7 fL (7.4-10.4); MONOCYTES % (AUTO) 11 % (2-9); NEUTROPHILS # (AUTO) 3.24 x10^3/uL (1.8-6.8); NEUTROPHILS % (AUTO) 61 % (42-75); PLATELET COUNT 345 x10^3/uL (130-400); RED BLOOD COUNT 3.92 x10^6/uL (3.82-5.3); RED CELL DISTRIBUTION WIDTH 18.2 % (9.6-15.2)
[2020-06-28 06:09] LABS: CREATININE 0.69 mg/dL (0.55-1.02)
[2020-06-28] MEDS ORDERED: LEVOTHYROXINE 100 MCG TABLET ONE (06:13)
[2020-06-28] MEDS: SODIUM CHLORIDE 0.9% 1,000 ML IV SCH ×2 (06:17→16:07)
[2020-06-28 07:15] VITALS: BP 122/65
[2020-06-28] MEDS ORDERED: LEVOTHYROXINE 100 MCG TABLET PO SCH (09:00)
[2020-06-28] MEDS ORDERED: LEVOTHYROXINE 125 MCG TABLET PO SCH (09:00)
[2020-06-28] MEDS: SERTRALINE 50MG TABLET PO SCH (09:25)
[2020-06-28] MEDS: SENNA/DOCUSATE TABLET PO SCH (09:25)
[2020-06-28] MEDS: RIVAROXABAN 15 MG TABLET PO SCH (09:25)
[2020-06-28] MEDS: OXYcodone/APAP 7.5/325MG TABLET PO SCH ×2 (13:10→21:19)
[2020-06-28 15:34] LABS: ANION GAP 6 mmol/L (5-15); CALCIUM 8.2 mg/dL (8.5-10.1); CHLORIDE 100 mmol/L (98-107); CREATININE 0.64 mg/dL (0.55-1.02)
[2020-06-28 15:43] VITALS: BP 131/64
[2020-06-28] MEDS ORDERED: SODIUM CHLORIDE 0.9% 1,000 ML IV SCH (19:07)
[2020-06-28 19:15] VITALS: BP 105/57
[2020-06-28] MEDS: NICOTINE 7 MG/24 HR PATCH.TD24 TD SCH (21:19)
[2020-06-28] MEDS: ATORVASTATIN 80 MG TABLET PO SCH (21:19)
[2020-06-29] VITALS (7 sets, daily range): BP systolic 115–183; BP diastolic 58–75
[2020-06-29] MEDS: ACETAMINOPHEN 325 MG TABLET PO PRN ×2 (03:24→12:18)
[2020-06-29 04:56] LABS: ANION GAP 5 mmol/L (5-15); CALCIUM 8.3 mg/dL (8.5-10.1); CHLORIDE 102 mmol/L (98-107); CREATININE 0.58 mg/dL (0.55-1.02)
[2020-06-29] MEDS: METOPROLOL SUCCINATE 25 MG TAB.ER.24H PO SCH (05:11)
[2020-06-29] MEDS: LEVOTHYROXINE 125 MCG TABLET PO SCH (05:11)
[2020-06-29] MEDS: RIVAROXABAN 15 MG TABLET PO SCH (08:13)
[2020-06-29] MEDS: SERTRALINE 50MG TABLET PO SCH (08:13)
[2020-06-29] MEDS: SENNA/DOCUSATE TABLET PO SCH (08:13)
[2020-06-29] MEDS: POLYETHYLENE GLYCOL 17 GM PACKET PO SCH (08:14)
[2020-06-29] MEDS: TIZANIDINE 4MG TABLET PO PRN ×2 (08:15→14:10)
[2020-06-29] MEDS: OXYcodone/APAP 7.5/325MG TABLET PO SCH ×2 (10:11→20:28)
[2020-06-29] MEDS ORDERED: hydrALAzine 20 MG/ML, 1ML IV PRN (16:00)
[2020-06-29] MEDS ORDERED: SODIUM CHLORIDE 0.9% 1,000 ML IV SCH (19:07)
[2020-06-29] MEDS ORDERED: CEFTRIAXONE PMX 2GM/50ML 50 ML IV SCH (19:30)
[2020-06-29] MEDS: NICOTINE 7 MG/24 HR PATCH.TD24 TD SCH (20:28)
[2020-06-29] MEDS: ATORVASTATIN 80 MG TABLET PO SCH (20:28)
[2020-06-30 00:25] VITALS: BP 184/81
[2020-06-30] MEDS: TIZANIDINE 4MG TABLET PO PRN ×2 (00:35→06:07)
[2020-06-30 01:31] VITALS: BP 109/60
[2020-06-30] MEDS: ACETAMINOPHEN 325 MG TABLET PO PRN (04:21)
[2020-06-30] MEDS ORDERED: METOPROLOL SUCCINATE 25 MG TAB.ER.24H PO SCH (06:00)
[2020-06-30] MEDS: LEVOTHYROXINE 125 MCG TABLET PO SCH (06:08)
[2020-06-30 06:09] VITALS: BP 184/73
[2020-06-30] MEDS ORDERED: LISINOPRIL 5 MG TABLET PO SCH (09:00)
[2020-06-30] MEDS: POLYETHYLENE GLYCOL 17 GM PACKET PO SCH (09:09)
[2020-06-30] MEDS: SERTRALINE 50MG TABLET PO SCH (09:09)
[2020-06-30] MEDS: RIVAROXABAN 15 MG TABLET PO SCH (09:09)
[2020-06-30] MEDS: SENNA/DOCUSATE TABLET PO SCH (09:09)
[2020-06-30] MEDS: OXYcodone/APAP 7.5/325MG TABLET PO SCH ×2 (09:09→20:22)
[2020-06-30] MEDS: LISINOPRIL 5 MG TABLET PO SCH (11:30)
[2020-06-30 14:27] VITALS: BP 149/68
[2020-06-30 18:26] VITALS: BP 164/77
[2020-06-30] MEDS: ATORVASTATIN 80 MG TABLET PO SCH (20:23)
[2020-07-01 00:49] VITALS: BP 166/77
[2020-07-01] MEDS: TIZANIDINE 4MG TABLET PO PRN (04:53)
[2020-07-01] MEDS: LEVOTHYROXINE 125 MCG TABLET PO SCH (04:53)
[2020-07-01] MEDS: ACETAMINOPHEN 325 MG TABLET PO PRN ×2 (04:54→14:11)
[2020-07-01 08:20] VITALS: BP 146/66
[2020-07-01] MEDS: POLYETHYLENE GLYCOL 17 GM PACKET PO SCH (09:00)
[2020-07-01] MEDS: SENNA/DOCUSATE TABLET PO SCH (09:00)
[2020-07-01] MEDS: NICOTINE 7 MG/24 HR PATCH.TD24 TD SCH (09:00)
[2020-07-01] MEDS: SERTRALINE 50MG TABLET PO SCH (09:01)
[2020-07-01] MEDS: LISINOPRIL 5 MG TABLET PO SCH (09:01)
[2020-07-01] MEDS: OXYcodone/APAP 7.5/325MG TABLET PO SCH ×2 (09:02→20:45)
[2020-07-01] MEDS: RIVAROXABAN 15 MG TABLET PO SCH (09:02)
[2020-07-01] MEDS ORDERED: LEVO125T PO (10:49)
[2020-07-01] MEDS ORDERED: LISI5TAB7 PO (10:49)
[2020-07-01 12:44] VITALS: BP 157/61
[2020-07-01 20:09] VITALS: BP 123/61
[2020-07-01] MEDS: ATORVASTATIN 80 MG TABLET PO SCH (20:45)
[2020-07-02 01:07] VITALS: BP 155/64
[2020-07-02] MEDS: TIZANIDINE 4MG TABLET PO PRN (05:48)
[2020-07-02] MEDS: ACETAMINOPHEN 325 MG TABLET PO PRN (05:48)
[2020-07-02] MEDS: LEVOTHYROXINE 125 MCG TABLET PO SCH (05:48)
[2020-07-02 08:00] VITALS: BP 116/54
[2020-07-02] MEDS: RIVAROXABAN 15 MG TABLET PO SCH (08:23)
[2020-07-02] MEDS: POLYETHYLENE GLYCOL 17 GM PACKET PO SCH (08:23)
[2020-07-02] MEDS: OXYcodone/APAP 7.5/325MG TABLET PO SCH (08:23)
[2020-07-02] MEDS: SENNA/DOCUSATE TABLET PO SCH (08:23)
[2020-07-02] MEDS: SERTRALINE 50MG TABLET PO SCH (08:23)
[2020-07-02] MEDS: LISINOPRIL 5 MG TABLET PO SCH (08:23)
[2020-07-02] MEDS: NICOTINE 7 MG/24 HR PATCH.TD24 TD SCH (08:27)
[2020-07-02 12:30] VITALS: BP 118/62
== END 2020-07-02 13:05 | DRG 689 ==
LOC: ED 17:43 → EDIP 18:32 → 4NE 18:55 → 3N 06-29 11:34
PROVIDERS: ADMIT Family Medicine; ATTEND Family Medicine
PROC: 0T9B70Z Drainage of Bladder with Drainage Device, Via Natural or Artificial Opening (ICD-10-PCS; principal; 2020-06-27)
DX: N30.00 Acute cystitis without hematuria (principal); E43 Unspecified severe protein-calorie malnutrition; E87.1 Hypo-osmolality and hyponatremia; F11.20 Opioid dependence, uncomplicated; J44.9 Chronic obstructive pulmonary disease, unspecified; I48.91 Unspecified atrial fibrillation; E86.1 Hypovolemia; E03.9 Hypothyroidism, unspecified; F17.210 Nicotine dependence, cigarettes, uncomplicated; F32.9 Major depressive disorder, single episode, unspecified; F41.9 Anxiety disorder, unspecified; G89.29 Other chronic pain; I10 Essential (primary) hypertension; M19.90 Unspecified osteoarthritis, unspecified site; R00.1 Bradycardia, unspecified; Z66 Do not resuscitate; Z79.01 Long term (current) use of anticoagulants; Z86.73 Personal history of transient ischemic attack (TIA), and cerebral infarction without residual deficits; Z68.20 Body mass index [BMI] 20.0-20.9, adult; Z82.49 Family history of ischemic heart disease and other diseases of the circulatory system; Z87.440 Personal history of urinary (tract) infections
CPT/HCPCS: 36415; 71045; 80048; 80053; 81001; 83605; 84443; 85025; 87040; 87086; 93005; 99285; G0378; J0696; J0360; J7030

== ENCOUNTER 2020-07-29 09:47 | Emergency (ER) | payer MEDICARE, MEDICAID ==
[~2020-07-29] VITALS: Ht 162.6 cm; Wt 48.0 kg
[~2020-07-29 09:47] MED LIST changes: +ASPI-515 PO; +LEVO125T PO; +LISI5TAB7 PO; -PANT40TA5 PO; +PANT40TA6 PO
--- NOTE | 2020-07-29 10:48 | NUR ---
wheeled to room tx w/ 2 person assist. pt poor historian, a&ox3-4 but rambling, hard to keep focused. fall at home hit head no thinners no loc c/o R heel pain. sts her md told her possible L hip fx. mid back extrem tender to touch but sts this is chronic, may be exacerbated, v unclear. 3+ pitting edema lowers sts worse than normal unclear on if takes meds for this. 2lnc at baseline. no bruising notd to heel/back. from [facility]. vss. call cardona. as
--- NOTE | 2020-07-29 11:12 | NUR ---
PATIENT IN XRAY.
--- NOTE | 2020-07-29 11:25 | NUR ---
ride [place] [phone] Dina
--- NOTE | 2020-07-29 11:37 | NUR ---
PATIENT JUST BACK FROM XRAY AND SHE IS ANGRY. SHE WANTS BLANKETS AND TO GET UP TO BATHROOM. REMINDED HER SHE CAN'T STAND AND NEEDS BEDPAN HER HIP COULD BE BROKEN. SHE THEN BEGAN INSULTING ME AT THIS. EXPLAINED TO HER TRYING TO HELP. GOT HER ON BEDPAN. NO VOID AFTER 4 MINUTES. SHE'S STATING SHE HURTS ALL OVER. SHE IS POOR HISTORIAN THAT ONLY WILL SAY HER HISTORY IS IN THE CHART. ON MONITOR RAILS UP.
[2020-07-29 12:25] LABS: BASOPHILS # (AUTO) 0.03 x10^3/uL (0-0.1); BASOPHILS % (AUTO) 1 % (0-1); EOSINOPHILS # (AUTO) 0.06 x10^3/uL (0-0.4); EOSINOPHILS % (AUTO) 1 % (1-7); LYMPHOCYTES # (AUTO) 1.21 x10^3/uL (1-3.4); LYMPHOCYTES % (AUTO) 19 % (22-44); MD NO; MEAN CORPUSCULAR HEMOGLOBIN 24.3 pg (27.0-34.8); MEAN CORPUSCULAR HGB CONC 31.5 g/dL (32.4-35.8); MEAN CORPUSCULAR VOLUME 77.1 fL (80-100); MONOCYTES # (AUTO) 0.59 x10^3/uL (0.2-0.8); MONOCYTES % (AUTO) 9 % (2-9); NEUTROPHILS # (AUTO) 4.52 x10^3/uL (1.8-6.8); NEUTROPHILS % (AUTO) 71 % (42-75); PLATELET COUNT 393 x10^3/uL (130-400); RED BLOOD COUNT 3.57 x10^6/uL (3.82-5.3); RED CELL DISTRIBUTION WIDTH 17.1 % (9.6-15.2)
[2020-07-29 12:32] LABS: CHLORIDE 91 mmol/L (98-107)
[2020-07-29 12:57] LABS: ALANINE AMINOTRANSFERASE 32 U/L (12-78); ALBUMIN 3.3 g/dL (3.4-5.0); ALKALINE PHOSPHATASE 66 U/L (45-117); ANION GAP 9 mmol/L (5-15); BILIRUBIN,TOTAL 0.5 mg/dL (0.2-1.0); CALCIUM 9.1 mg/dL (8.5-10.1); CREATININE 0.64 mg/dL (0.55-1.02); TOTAL PROTEIN 7.2 g/dL (6.4-8.2)
--- NOTE | 2020-07-29 13:37 | NUR ---
patient got on bedpan and had about 300 cc urine out
[2020-07-29 14:10] VITALS: BP 125/78
--- NOTE | 2020-07-29 14:49 | NUR ---
PT VERBALIZED UNDERSTAND OF DC INSTRUCTIONS. WHEELED TO LOBBY BY CAREGIVER. RESP EVEN AND UNLABORED, DON.
== END 2020-07-29 14:51 | disposition home or self-care (01) ==
LOC: ED 12:19
DX: G89.11 Acute pain due to trauma (principal); R07.81 Pleurodynia; M79.671 Pain in right foot; M25.552 Pain in left hip; J44.9 Chronic obstructive pulmonary disease, unspecified; I10 Essential (primary) hypertension; I48.91 Unspecified atrial fibrillation; I25.2 Old myocardial infarction; E03.9 Hypothyroidism, unspecified; Z88.1 Allergy status to other antibiotic agents; Z79.899 Other long term (current) drug therapy; W01.0XXA Fall on same level from slipping, tripping and stumbling without subsequent striking against object, initial encounter; Y93.89 Activity, other specified; Y92.098 Other place in other non-institutional residence as the place of occurrence of the external cause; Y99.8 Other external cause status
CPT/HCPCS: 36415; 72192; 80053; 85025; 99285

== ENCOUNTER 2021-02-03 17:57 | Emergency (ER) | payer MEDICARE, MEDICAID ==
[~2021-02-03] VITALS: Ht 162.6 cm; Wt 106.0 kg
[~2021-02-03 17:57] MED LIST changes: -ALEN70TA6 PO; +ALEN70TA77 PO; +AMIO200T42 PO; +AMLO-210 PO; +AMLO-211 PO; -AMLO10TA8 PO; -ASPI-515 PO; +ASPI-963 PO; +BISA10SU4 PR; +CLOP75TA PO; +FLUT16SP24 NAS; +FURO20TA3 PO; +LISI-167 PO; +LISI40TA9 PO; +METH-640 PO; -METH750T2 PO; +MORP-30 PO; -OXYC-306 PO; +OXYC1TAB17 PO; +SERT50TA28 PO; +Senna/Docusate PO; +melatonin PO
--- NOTE | 2021-02-03 18:11 | NUR ---
PATIENT BIB EMS WITH CHIEF C/O RIGHT HIP PAIN. PER EMS PATIENT HAD HIP FX 1 MONTH AGO AND SURGERY, RELEASED 2 DAYS AGO FROM [facility]. TODAY PATIENT HAVING INCREASED PAIN IN RIGHT HIP AND UNABLE TO MOVE AROUND MUCH, TOLD TO COME TO ED BY SURGEON. VSS EN ROUTE, NO INTERVENTIONS. PATIENT DENIES PAIN AT THIS TIME, VSS, PATIENT ON 4 LPM NC, THIS IS HER BASELINE, SIDE RAILS UP X2, CALL LIGHT WITHIN REACH.
--- NOTE | 2021-02-03 18:27 | NUR ---
KEVIN YUN (DAUGHTER) [phone]
--- NOTE | 2021-02-03 18:36 | NUR ---
SPOKE WITH PATIENT'S DAUGHTER KEVIN, UPDATED ON POC. PATIENT'S DAUGHTER KEVIN VERIFIED THAT PATIENT WAS RELEASED FROM [facility] 2 DAYS AGO AFTER BEING THERE SINCE 12/05/2020, AND "DOING GREAT" PER STAFF AT REHAB FACILITY. HOME HEALTH NURSE CALLED DAUGHTER TODAY BECAUSE PATIENT HADN'T MOVED IN 2 DAYS, BEING UNABLE TO PUT WEIGHT ON HER RIGHT LEG. PER DAUGHTER PATIENT "JUST WANTS TO BE HOME AND TAKE PAIN MEDICATION AND ." FAMILY IS LOOKING INTO HOSPICE.
--- NOTE | 2021-02-03 18:44 | NUR ---
REPORT FROM MARNI SAMUEL
--- NOTE | 2021-02-03 19:00 | NUR ---
PT SITTING UPRIGHT ON DON [place], VSS. PT REPORTS PAIN AND REQUESTING "SOMETHING FOR THE PAIN". ERP AWARE. PT DENIES ANY ADDITIONAL NEEDS AT THIS TIME. CALL LIGHT AND PERSONAL BELONGINGS WITHIN REACH.
[2021-02-03] MEDS ORDERED: OXYcodone/APAP 5/325MG TABLET ONE (19:24)
[2021-02-03] MEDS ORDERED: OXYcodone/APAP 5/325MG TABLET PO ONE (19:30)
--- NOTE | 2021-02-03 19:37 | NUR ---
PT TO IMAGING
--- NOTE | 2021-02-03 19:46 | NUR ---
PT RETURNED FROM IMAGING
--- NOTE | 2021-02-03 20:03 | NUR ---
PT SITTING UPRIGHT ON GURNEY, CONTINUALLY STATING "I JUST WANT TO LEAVE, I STILL HAVE PAIN. I JUST WANT TO GO HOME". ERP AWARE. PT DENIES ANY ADDITONAL NEEDS AT THIS TIME. CALL LIGHT AND BELONGINGS WITHIN REACH.
--- NOTE | 2021-02-03 21:03 | NUR ---
ATTEMPT TO AMBULATE PT WITH WALKED. PT ABLE TO TAKE A FEW STEPS WITH ASSISTANCE. PT INSISTING SHE "MUST GO HOME, I HAVE SO MANY PEOPLE THAT ARE MY NEIGHBORS THAT CAN HELP ME AND I GET AROUND JUST FINE IN MY PLACE. I HAVE A BUNCH OF DIFFERENT WALKERS AND ELECTRIC CHAIR TO GET AROUND. I ALSO HAVE BARS TO HOLD ONTO ALL OVER MY APARTMENT." ERP AWARE. WILL EVALUATE PT AT BEDSIDE. PER ERP, PT OK TO GO HOME AT THIS TIME. WILL SET UP TRANSPORT TO GET PT HOME SAFELY. NO ADDITIONAL NEEDS AT THIS TIME.
--- NOTE | 2021-02-03 22:03 | NUR ---
PT UPRIGHT ON GURNEY, AWAITING D/C FROM DEPARTMENT. NO NEEDS AT THIS TIME
--- NOTE | 2021-02-03 23:00 | NUR ---
PT SLEEPING ON GURNEY, NADN, VSS. SIDE RAILS UP X2. CONTINUOUS MONITORING IN PLACE.
[2021-02-03 23:03] VITALS: BP 112/23
--- NOTE | 2021-02-03 23:46 | NUR ---
PT PROVIDED WATER AND CRACKERS PER REQUEST. NO ADDITIONAL NEEDS AT THIS TIME. AWAITING TRANSPORT HOME
[2021-02-04] MEDS ORDERED: OXYcodone/APAP 5/325MG TABLET ONE (00:24)
[2021-02-04] MEDS ORDERED: OXYcodone/APAP 5/325MG TABLET PO ONE (00:30)
--- NOTE | 2021-02-04 00:42 | NUR ---
PT BRIEF CHANGED PER REQUEST. NEW ADULT DIAPER PLACED. PT TOLERATED WELL. PT DENIES ANY ADDITIONAL NEEDS AT THIS TIME. CALL LIGHT IN REACH.
--- NOTE | 2021-02-04 00:54 | NUR ---
REPORT GIVEN TO ROBERT. ROBERT IN ED TO TRANSPORT PT BACK HOME. PT GIVEN D/C INSTRUCTIONS AND VERBALIZED UNDERSTANDING OF THESE INSTRUCTIONS. CALL TO PT APARTMENT MANAGEMENT COMPLEX, ELMER WILL MEET EMS AND PT AT APARTMENT TO UNLOCK HER DOOR.
== END 2021-02-04 00:57 | disposition home or self-care (01) ==
LOC: ED 21:03
DX: M25.551 Pain in right hip (principal); J44.9 Chronic obstructive pulmonary disease, unspecified; I25.2 Old myocardial infarction; I11.0 Hypertensive heart disease with heart failure; I50.9 Heart failure, unspecified; E03.9 Hypothyroidism, unspecified; M19.90 Unspecified osteoarthritis, unspecified site; I48.91 Unspecified atrial fibrillation; Z88.8 Allergy status to other drugs, medicaments and biological substances; Z87.891 Personal history of nicotine dependence
CPT/HCPCS: 99285